=== PATIENT | male | born 1995 | race Caucasian/White ===

== ENCOUNTER 2018-04-20 11:15 | Emergency (ER) | payer OTHER ==
[~2018-04-20] VITALS: Ht 170.1 cm; Wt 68.0 kg
[~2018-04-20 11:15] MED LIST: AMOXICILLIN500 MG PO; AUGMENTIN 400 M1 CTB PO; CIPRODEX 0.3%-7.5 ML OT; CLARITIN10 MG PO; MOTRIN100 M1 PO; MOTRIN800 MG PO; NO DAILY MEDS; TOBRADEX 0.1%-0.5 ML OPH
[2018-04-20] MEDS ORDERED: CLARITIN-D 24 H1 TAB PO (11:33)
[2018-04-20] MEDS ORDERED: FLONASE ALLERG9.9 ML NAS (11:33)
[2018-04-20] MEDS ORDERED: PREDNISONE10 MG PO (11:33)
== END 2018-04-20 11:54 | disposition home or self-care (01) ==
LOC: ED 11:15
DX: J02.9 Acute pharyngitis, unspecified (principal)

== ENCOUNTER → 2020-06-15 | Outpatient (CLI) | payer OTHER ==
[~2020-06-15] MED LIST changes: +CLARITIN-D 24 H1 TAB PO; +FLONASE ALLERG9.9 ML NAS; +PREDNISONE10 MG PO
== END | disposition home or self-care (01) ==
LOC: COVID19 03:43
DX: Z03.818 Encounter for observation for suspected exposure to other biological agents ruled out (principal); Z78.9 Other specified health status

== ENCOUNTER → 2021-11-22 | Outpatient (CLI) | payer OTHER | END | disposition home or self-care (01) | LOC: COVID19 16:56 | PROVIDERS: ATTEND Podiatrist Foot & Ankle Surgery | DX: U07.1 COVID-19 (principal) ==